=== PATIENT | female | born 1930 | race Caucasian/White ===

== ENCOUNTER → 2017-02-22 | Outpatient (CLI) | payer MEDICARE ==
[~2017-02-22] MED LIST: AMIT25TA PO; ASPI81TA83 PO; ASPI81TA85 PO; ASPI81TAEC PO; CALC1TAB17 PO; CALCIUM WITH VIT D PO; CALCTAB23 PO; CARV6.25 PO; DOXY100C PO; DOXY100T PO; FISH500C OR; LABE100T2 OR; LISI-538 PO; LISI20TA5 OR; LOPR1TAB6 PO; MULT1TAB8 PO; MULTIVIT PO; PLAV75TA38 PO; TYLE1TAB5 PO; TYLE325T5 PO; TYLENOL PM PO; VITA250T OR; VITA500C24 PO; VITMTA PO
--- NOTE | 2017-02-22 11:09 | REP ---
Clinical: Right hip pain. Technique: Single AP view of the pelvis with neutral and frog lateral views of the right hip. Findings: Arthritic degenerative changes include increased sclerosis to the acetabular roof with subtle marginal spurring and significant joint space narrowing. No acute fracture dislocation. Similar changes are identified involving the left hip. 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
== END ==
LOC: M CLY 09:49
PROVIDERS: ATTEND Nurse Practitioner Family
DX: M16.0 Bilateral primary osteoarthritis of hip (principal)
CPT/HCPCS: 73502; G0463

== ENCOUNTER → 2017-03-02 | Outpatient (CLI) | payer MEDICARE ==
--- NOTE | 2017-03-02 12:54 | REP ---
REASON: Chronic right hip pain. Comparison right hip MRI: None. There is motion artifact on all sequences and on all images significantly decreasing the sensitivity of the exam. There is a mild right hip joint effusion. There is bilateral asymmetric hip joint space narrowing right greater than left. There is subtle subchondral T2 hypersignal right femoral head. The imaged portions of the sacroiliac joint show no gross abnormalities. The cortical and marrow signal seen throughout the remainder of the imaged osseous pelvis is within normal limits for the patient's age. The signal and morphology throughout the imaged musculature appears to be within normal limits but detailed obscured by motion artifact. Magnified small field of view imaging of the right hip again shows mild patchy T2 hypersignal in the subchondral right femoral head. This is nonspecific. There is moderate to severe hip joint space narrowing, which is asymmetric. The labrum appears somewhat large, possibly secondary to myxoid degenerative change difficult to evaluate due to artifact. IMPRESSION: 1. Exam limitations as described above. 2. Right hip joint effusion and degenerative changes as described above. 3. Mild subchondral right femoral head edema likely secondary to repeated microtrauma from degenerative change. This needs to be correlated clinically with appropriate followup. 4. Other findings as described above. Signed by Jessee Joya DO 03/02/2017 02:26 P
== END ==
LOC: M RAD 09:31
PROVIDERS: ATTEND Nurse Practitioner Family
DX: M25.559 Pain in unspecified hip (principal)

== ENCOUNTER → 2017-04-20 | Outpatient (REF) | payer MEDICARE ==
[~2017-04-20] MED LIST changes: +CALC1TAB60 PO; -CALCTAB23 PO; +PLAV1TAB2 PO; -PLAV75TA38 PO
[2017-04-20 13:53] LABS: ALBUMIN 4.1 GM/DL (3.2-5.2); ALBUMIN/GLOBULIN RATIO 1.37 (1.00-1.93); BILIRUBIN,TOTAL 0.6 MG/DL (0.2-1.0); CALCIUM LEVEL 9.5 MG/DL (8.8-10.2); CREATININE FOR GFR 1.03 MG/DL (0.55-1.02); GLOMERULAR FILTRATION RATE 53.7 (>32); POTASSIUM SERUM 4.6 MEQ/L (3.5-5.1); TOTAL PROTEIN 7.1 GM/DL (6.4-8.2)
== END ==
LOC: M SFHCCLAY 11:01
PROVIDERS: ATTEND Internal Medicine Cardiovascular Disease
DX: I11.9 Hypertensive heart disease without heart failure (principal)

== ENCOUNTER → 2017-07-18 | Outpatient (REF) | payer MEDICARE | LOC: M SFHCCLAY 11:21 | PROVIDERS: ATTEND Nurse Practitioner Family | DX: N76.1 Subacute and chronic vaginitis (principal) ==

== ENCOUNTER → 2017-11-15 | Outpatient (REF) | payer MEDICARE ==
[2017-11-15 11:07] LABS: HEMATOCRIT 45.2 % (36.0-47.0); MEAN CORPUSCULAR HEMOGLOBIN 32.1 pg (27.0-33.0); MEAN CORPUSCULAR HGB CONC 33.2 g/dl (32.0-36.5); MEAN CORPUSCULAR VOLUME 96.8 fl (80.0-96.0); PLATELET COUNT, AUTOMATED 182 10^3/uL (150-450); RED BLOOD COUNT 4.67 10^6/uL (4.00-5.40); RED CELL DISTRIBUTION WIDTH 12.4 % (11.5-14.5); WHITE BLOOD COUNT 5.2 10^3/uL (4.0-10.0)
[2017-11-15 11:32] LABS: ANION GAP 7 MEQ/L (8-16); BLOOD UREA NITROGEN 23 MG/DL (7-18); CALCIUM LEVEL 9.4 MG/DL (8.8-10.2); CARBON DIOXIDE LEVEL 30 MEQ/L (21-32); CHLORIDE LEVEL 106 MEQ/L (98-107); CREATININE FOR GFR 0.92 MG/DL (0.55-1.30); FREE T3 3.4 PG/ML (2.2-4.0); GLOMERULAR FILTRATION RATE > 60.0 (>32); GLUCOSE, FASTING 101 MG/DL (70-100); POTASSIUM SERUM 4.4 MEQ/L (3.5-5.1); SODIUM LEVEL 143 MEQ/L (136-145)
== END ==
LOC: M SFHCCLAY 08:14
DX: L90.0 Lichen sclerosus et atrophicus (principal); R63.4 Abnormal weight loss
CPT/HCPCS: 84443

== ENCOUNTER → 2017-11-28 | Outpatient (CLI) | payer MEDICARE | LOC: M CLY 11:32 | DX: R63.4 Abnormal weight loss (principal); J98.4 Other disorders of lung | CPT/HCPCS: 71046; G0463 ==

== ENCOUNTER → 2017-12-05 | Outpatient (CLI) | payer MEDICARE ==
[~2017-12-05] MED LIST changes: -AMIT25TA PO; -ASPI81TA83 PO; -ASPI81TA85 PO; -ASPI81TAEC PO; -CALC1TAB17 PO; -CALC1TAB60 PO; -CALCIUM WITH VIT D PO; -CARV6.25 PO; -DOXY100C PO; -DOXY100T PO; -FISH500C OR; +ISOVUE-370 76% 100ML VIAL (Q9967) As Ordered; -LABE100T2 OR; -LISI-538 PO; -LISI20TA5 OR; -LOPR1TAB6 PO; -MULT1TAB8 PO; -MULTIVIT PO; -PLAV1TAB2 PO; -TYLE1TAB5 PO; -TYLE325T5 PO; -TYLENOL PM PO; -VITA250T OR; -VITA500C24 PO; -VITMTA PO
== END ==
LOC: M RAD 07:57
DX: R91.8 Other nonspecific abnormal finding of lung field (principal); R63.4 Abnormal weight loss
CPT/HCPCS: Q9967